=== PATIENT | female | born 1965 | race Caucasian/White ===

== ENCOUNTER 2017-10-28 05:47 | Day surgery (SDC) | payer SELFPAY ==
[~2017-10-28] VITALS: Ht 172.7 cm; Wt 89.1 kg
[2017-10-28 06:47] VITALS: BP 132/87; PULSE 78; TEMP 97.5
[2017-10-28] MEDS ORDERED: NAPROSYN500 MG PO (06:56)
[2017-10-28 08:08] VITALS: BP 137/70; PULSE 71
[2017-10-28 08:23] VITALS: BP 140/69; PULSE 62
[2017-10-28] MEDS ORDERED: NORCO 325 MG-51 TAB PO (08:29)
[2017-10-28] MEDS ORDERED: COLACE 100100 MG/CAP PO (08:30)
[2017-10-28] MEDS ORDERED: MOBIC15 MG PO (08:31)
[2017-10-28] MEDS ORDERED: ZOFRAN 4MG T4 MG/TAB PO (08:32)
[2017-10-28 08:38] VITALS: BP 123/74; PULSE 61
[2017-10-28 08:58] VITALS: BP 117/89; PULSE 65
== END 2017-10-28 09:39 | disposition home or self-care (01) ==
LOC: SDCO 05:47
DX: G56.03 Carpal tunnel syndrome, bilateral upper limbs (principal); Z85.828 Personal history of other malignant neoplasm of skin; Z80.9 Family history of malignant neoplasm, unspecified; Z68.29 Body mass index [BMI] 29.0-29.9, adult
CPT/HCPCS: J0690; J2704; J3010; J7120